=== PATIENT | female | born 1990 | race Caucasian/White ===

== ENCOUNTER 2018-05-24 01:47 | Inpatient (IN) | payer OTHER, SELFPAY ==
[2018-05-24] VITALS (14 sets, daily range): BP systolic 89–145; BP diastolic 46–86; PULSE 80–104; RESP 16–20; TEMP 36.4–37.4; O2SAT 98–100; BMI 32.5
[2018-05-24 01:45] LABS: ROM Internal Control Test YES-OK TO RESULT pt. (Internal QC)
[2018-05-24 01:46] LABS: ROM Patient Test POSITIVE (Negative)
[2018-05-24 02:27] LABS: Hemoglobin 11.5 g/dl (12.0-15.0); Mean Corp Hgb Conc 31.9 g/gl (32-36); Mean Corpuscular Hgb 28.8 pg (27.0-32.0); Mean Platelet Vol. 10.4 fl (6.2-12.0); Platelet Count 232 K/mm3 (150-450); RBC Distribution Width CV 15.4 % (11.6-14.6); RBC Distribution Width SD 49.4 fl (35.1-43.9); White Blood Count 23.8 K/mm3 (4.4-11.0)
[2018-05-24 02:30] LABS: Scan Indicated on CBC? Y/N NO
[2018-05-24] MEDS: Lactated Ringers 1,000 ML 50 ML IV ×4 (02:39→11:10)
[2018-05-24] MEDS: fentaNYL-bupivacaine (epidural) 100 ML BAG EPIDURAL ×2 (03:30→12:18)
[2018-05-24] MEDS: Ondansetron 4 MG/2 ML Vial IV (05:15)
[2018-05-24] MEDS: Mag Hydrox/Al Hydrox/Simeth 30 ML UDC PO (07:30)
--- NOTE | 2018-05-24 12:18 | HP.PCM_ITS ---
History Final JIM: 05/29/18 Gestational age: 39 Weeks and 2 Days History of this : This is a 28 year-old, G [], P [], at 39 weeks gestational age. Surgical History: Surgical History (Last Updated 05/24/18 @ 12:16 by Adonay Herman) Hx of appendectomy Z90.49 Allergies azithromycin [From Zithromax Z-Yaw] Allergy (Verified 05/24/18 01:30) Rash [place] And Derivatives Allergy (Verified 05/24/18 01:30) Anaphylaxis acetaminophen [From Vicodin] Adverse Reaction (Verified 05/24/18 01:30) Upset Stomach hydrocodone [From Vicodin] Adverse Reaction (Verified 05/24/18 01:30) Upset Stomach Home Medications: Home Medications Acyclovir [Zovirax] 400 mg PO BID PRN 05/24/18 Amoxicillin/Potassium Clav [Amox Tr-K Clv 875-125 mg Tab] 1 each PO BID 05/24/18 Pnv 11-Iron Fum-Folic Acid-Om3 [Virt-Ricardo Dha Softgel] 1 tab PO DAILY 05/24/18 Smoking Status: Current every day smoker Alcohol: None Number of Fetus(es): 1 Heart Tracin with moderate variability, accels, variables TOCO Analysis: Q3-4 minutes History Past Pregnancies: Past Pregnancies Delivery Date Name GA/Weeks Outcome Route Weight Gender Labor Length Anesthesia Delivery Location Provider FOB Labs: See [facility] H[facility]P Physical Exam General: Alert, Oriented x3 Abdomen: Soft, Gravid Estimated gestational size: Appropriate for gestational size Presentation: Cephalic Cervix Dilation (cm): 10 Station: 1 Effacement (%): 100 Assessment/Plan This is a 28 year-old female admitted with SROM Augment with pitocin Pain - epidural GBS negative EFW less than 4500g & patient with adequate pelvis Continue pushing
[2018-05-24] MEDS: Cefazolin 2 GM in 0.9% Normal Saline 100 ML IV (13:56)
[2018-05-24] MEDS: Oxytocin 30 units/NS 500 ml 30 UNITS/500 ML IV.SOLN 167 UNITS IV (14:18)
--- NOTE | 2018-05-24 15:04 | OP.PCM_ITS ---
Delivery Classification: JANAY Final JIM: 05/29/18 Gestational age: 39 Weeks and 2 Days Indications: Patient pushed for over 3 hours. station was 0 and caput was noted. Fetus was felt to be asynclitic & possibly OP. Multiple positions during pushing had been tried for rotation. R/B/A were discussed with the patient & decision was made to proceed with a section. Indications for : Failure of Descent Description of Procedure: Patient taken to OR where epidural anesthesia was dosed. She was prepped and draped in normal sterile fashion in a dorsal lithotomy position with a leftward tilt. After ensuring adequacy of anesthesia the Pfannensteil skin incision was made and carried through to the underlying fascia with a bovie. The fascia was incised in the midline and carried laterally with the Hodgson scissors. The rectus muscles were in the midline and the peritoneum was entered bluntly. The bladder flap was dissected down carefully with the Metzenbaum scissors and blunt dissection. The uterus was incised in a transverse fashion and then incision extended with cephalocaudad traction. The fetus was vertex and the head was brought to the incision in the flexed position. With good fundal pressure the head easily delivered. Gentle traction placed on head to allow delivery of anterior & posterior shoulders. No excess traction placed on head. The body delivered easily. The 3VC cord was clamped and cut after 1 minute delay and the infant handed off to the waiting RN. The placenta was delivered w/ gentle traction and fundal massage and the uterus was exteriorized and cleared of all clots and debris. The uterine incision was closed with 1 vicryl suture in a running locked fashion. A second imbricating layer of monocryl was placed. The uterus was returned to the peritoneal cavity. The pelvis was irrigated & then cleared of all clots and debris. The uterine incision was reexamined and found to be hemostatic. Some terri was placed over the uterine incision due to the denuded areas. The parietal peritoneum was reapproximated with running vicryl suture. The fascia was closed with looped PDS suture in a running standard fashion. The subcutaneous tissue was examined & any bleeding bovie cauterized. The subcutaneous tissue was reapproximated with plain gut suture. The skin was closed in a subcuticular fashion by the CUFFING MACHINE OPERATOR with me present in the labor and delivery suite. I performed the remainder of the procedure w/ assistance. Amniotic Membrane Rupture Type: Spontaneous Amniotic Fluid Description: Clear Placenta Disposition: [facility] Drain: Cshwartz to straight drain - 600ml Fluids Replaced: 1500ml Cord Entanglement: None Cord Vessel Description: 3 Vessels Esitmated Blood Loss (ml): 700ml Infant Gender: Male (1 minute): 9 (5 minute): 9 Delayed cord clamping: Yes Pre-op Antibiotic Given: Ancef 2 grams IV x1 Complications: None
[2018-05-24] MEDS: Ketorolac 30 MG/ML Syringe IV ×2 (15:10→21:56)
[2018-05-24] MEDS: HYDROmorphone 1 MG/ML Syringe IV ×3 (15:45→23:07)
[2018-05-24] MEDS: Lactated Ringers 1,000 ML 100 ML IV (16:12)
[2018-05-24] MEDS: 0.9% Saline Lock 10 ML Syringe IV ×2 (21:56→23:07)
[2018-05-25] MEDS: Lactated Ringers 1,000 ML 100 ML IV (02:25)
[2018-05-25] MEDS: HYDROmorphone 1 MG/ML Syringe IV ×3 (02:26→13:39)
[2018-05-25] MEDS: 0.9% Saline Lock 10 ML Syringe IV ×3 (02:26→05:54)
[2018-05-25 04:25] VITALS: BP 109/49; PULSE 100; RESP 18; TEMP 36.9; O2SAT 95
[2018-05-25] MEDS: Ketorolac 30 MG/ML Syringe IV ×2 (04:31→09:15)
[2018-05-25 06:18] LABS: Hematocrit 29.3 % (37-47); Hemoglobin 9.1 g/dl (12.0-15.0); Mean Corp Hgb Conc 31.1 g/gl (32-36); Mean Corpuscular Hgb 28.3 pg (27.0-32.0); Mean Corpuscular Volume 91.3 fL (81-99); Mean Platelet Vol. 10.5 fl (6.2-12.0); Platelet Count 206 K/mm3 (150-450); RBC Distribution Width CV 15.5 % (11.6-14.6); RBC Distribution Width SD 49.8 fl (35.1-43.9); Red Blood Count 3.21 M/mm3 (4.2-5.4)
[2018-05-25 06:20] LABS: Scan Indicated on CBC? Y/N NO
--- NOTE | 2018-05-25 08:08 | NURSING ---
@ 0717 Dr. Herman aware of home medication pt brought to hospital with her; Amoxicillin 875 mg tab BID PO by Dr. Adams for respiratory and sinus infection - pt states finishing medication by end of the week. Acyclovir 400mg tabp BID PO by Dr. Gaona for hx of herpes. Dr. Herman states pt does not need to continue Acyclovir medication prescribed by Dr. Gaona, and states pt may take own home medication of Amoxicillin if cleared by pharmacy. @ 1311 pharmacy called and given information of prescription , states that hospital does not carry dosage of amoxicillin and pt may take own prescribed medication if order cleared by physician. states for RN to send down prescription to be cleared by pharmacy.
--- NOTE | 2018-05-25 08:24 | PCM.PN.OB ---
Subjective: Patient laying in bed, reporting that her pain well controlled. Denies any other issues at this time. Reports baby is latching well and that she has minimal pain. Objective: Nipples without cracks, blisters, ecchymoses or erythema FF midline @ 2FB below umbilicus Incision dressing dry and intact, no blood or exudate on dressing +2/4 reflexes in LE, SCDs in place, trace pedal edema BL negative calf tenderness to palpation - Physical Exam General: Alert, Oriented x3, Cooperative HEENT: Atraumatic, Normocephalic Neck: Supple Lungs: Normal air movement Cardiovascular: Regular rate, No murmurs Abdomen: Soft, Non Tender Extremities: No edema, Capillary Refill Less than 3 Seconds Skin: No rashes, No breakdown Musculoskeletal: No Tenderness to Palpation of Joints or Extremities Neurological: Cranial nerves II-XII grossly intact Psych/Mental Status: Normal Affect, Appropriate Vital Signs Temp Pulse Resp BP Pulse Ox 98.5 F 100 18 109/49 L 95 05/25/18 04:25 05/25/18 04:25 05/25/18 04:25 05/25/18 04:25 05/25/18 04:25 Oxygen Delivery Method Room Air Weight: 214 lb 2 oz Body Mass Index (BMI) 32.5 Intake and Output for Last 24 Hours 05/23/18 05/24/18 05/25/18 23:59 23:59 23:59 Intake Total 5314 / 5314 1995 Output Total 2100 / 2100 1400 / 1400 Balance 3214 / 3214 596 / 596 Laboratory Tests Past 24 Hrs 05/25/18 06:00 WBC 19.0 H RBC 3.21 L Hgb 9.1 L Hct 29.3 L MCV 91.3 MCH 28.3 MCHC 31.1 L RDW 15.5 H RDW Differential 49.8 H Plt Count 206 MPV 10.5 Medical Necessity - Tobacco Use Smoking Status: Current every day smoker Assessment/Plan 28 y/o s/p primary LTCs for failure to descend, POD #1 P: 1) Continue PP Orders at this time 2) Continue , consultation today Sylwia Rees APRN-GAYE
[2018-05-25 09:04] VITALS: BP 115/69; PULSE 98; RESP 18; TEMP 36.9; O2SAT 97
[2018-05-25] MEDS: AMOXICILLIN 875 MG TABLET PO ×2 (10:25→21:08)
[2018-05-25 12:00] VITALS: BP 96/55; PULSE 104; RESP 18; TEMP 36.9
[2018-05-25] MEDS: Naproxen 250 MG Tablet PO (15:10)
[2018-05-25 16:00] VITALS: BP 114/68; PULSE 92; RESP 18; TEMP 36.8
[2018-05-25] MEDS: oxyCODONE 5 MG Tablet PO ×2 (16:18→21:10)
[2018-05-25 20:00] VITALS: BP 117/70; PULSE 88; RESP 16; TEMP 37.1; O2SAT 98
[2018-05-25] MEDS: Senna/Docusate Sodium 1 Tablet PO (21:11)
[2018-05-26] MEDS: Naproxen 250 MG Tablet PO (03:46)
[2018-05-26 03:48] VITALS: BP 119/80; PULSE 109; RESP 16; TEMP 36.8; O2SAT 98
[2018-05-26] MEDS: oxyCODONE 5 MG Tablet PO ×4 (06:52→19:19)
[2018-05-26 08:30] VITALS: BP 103/68; PULSE 62; RESP 16; TEMP 36.7; O2SAT 96
--- NOTE | 2018-05-26 08:38 | PCM.PN.OB ---
Subjective: Pain controlled. - Physical Exam General: Alert, Oriented x3 Abdomen: Soft, Non Tender, Non-Distended - ff mid & below umb Extremities: No Calf Tenderness Vital Signs Temp Pulse Resp BP Pulse Ox 98.3 F 109 H 16 119/80 98 05/26/18 03:48 05/26/18 03:48 05/26/18 03:48 05/26/18 03:48 05/26/18 03:48 Oxygen Delivery Method Room Air Weight: 214 lb 2 oz Body Mass Index (BMI) 32.5 Intake and Output for Last 24 Hours 05/24/18 05/25/18 05/26/18 23:59 23:59 23:59 Intake Total 5314 / 5314 3381 / 3381 Output Total 2100 / 2100 4750 / 4750 Balance 3214 / 3214 -1369 / -1369 Medical Necessity - Tobacco Use Smoking Status: Current every day smoker Assessment/Plan POD#2 Routine care Heme - cbc reviewed
[2018-05-26] MEDS: Ferrous Sulfate 325 MG Tablet PO (10:03)
[2018-05-26] MEDS: Senna/Docusate Sodium 1 Tablet PO (10:03)
[2018-05-26] MEDS: AMOXICILLIN 875 MG TABLET PO ×2 (10:04→22:24)
[2018-05-26 14:00] VITALS: BP 111/72; PULSE 85; RESP 18; TEMP 36.9; O2SAT 97
[2018-05-26 20:25] VITALS: BP 113/66; PULSE 86; RESP 18; TEMP 36.9; O2SAT 97
[2018-05-27 03:32] VITALS: BP 130/73; PULSE 78; RESP 16; TEMP 36.5; O2SAT 96
[2018-05-27] MEDS: oxyCODONE 5 MG Tablet PO ×2 (04:11→13:19)
[2018-05-27] MEDS: Ferrous Sulfate 325 MG Tablet PO (08:02)
[2018-05-27] MEDS: Senna/Docusate Sodium 1 Tablet PO (08:02)
[2018-05-27 08:19] VITALS: BP 113/80; PULSE 76; RESP 16; TEMP 36.6; O2SAT 97
--- NOTE | 2018-05-27 08:39 | PCM.PN.OB ---
Subjective: Baby was cluster feeding last night & nipples are sore. Pain controlled. - Physical Exam General: Alert, Oriented x3 Abdomen: Soft, Non Tender, Non-Distended - ff mid & below umb; inc - bandage c/d/i Extremities: No Calf Tenderness Vital Signs Temp Pulse Resp BP Pulse Ox 97.9 F 76 16 113/80 97 05/27/18 08:19 05/27/18 08:19 05/27/18 08:19 05/27/18 08:19 05/27/18 08:19 Oxygen Delivery Method Room Air Weight: 214 lb 2 oz Body Mass Index (BMI) 32.5 Intake and Output for Last 24 Hours 05/25/18 05/26/18 05/27/18 23:59 23:59 23:59 Intake Total 3381 / 3381 Output Total 4750 / 4750 Balance -1369 / -1369 Medical Necessity - Tobacco Use Smoking Status: Current every day smoker Assessment/Plan POD#3 Encouraged PLan for d/c later today or tomorrow
--- NOTE | 2018-05-27 08:40 | PCM.DC.SUM ---
Discharge Date and Diagnosis Date of Admission: 05/24/18 Date of Discharge: 05/27/18 Hospital Course and Treatment Summary of Care Provided: Patient was admitted in labor and proceed to have a section. Please see operative report. Hospital course Heme - HDS< cbc reviewed GI - tolerating reg diet - fields removed on POD#1 & no voiding issues Discharge home with medications & f/u directions - Physical Exam Vital Signs Temp Pulse Resp BP Pulse Ox 97.9 F 76 16 113/80 97 05/27/18 08:19 05/27/18 08:19 05/27/18 08:19 05/27/18 08:19 05/27/18 08:19 Oxygen Delivery Method Room Air Weight: 214 lb 2 oz Body Mass Index (BMI) 32.5 Intake and Output for Last 24 Hours 05/25/18 05/26/18 05/27/18 23:59 23:59 23:59 Intake Total 3381 / 3381 Output Total 4750 / 4750 Balance -1369 / -1369 Home Medications: Medications to take at Discharge Acyclovir [Zovirax] 400 mg PO BID PRN 05/24/18 Amoxicillin/Potassium Clav [Amox-Clav 875-125 mg Tablet] 1 each PO BID 05/24/18 Pnv 11-Iron Fum-Folic Acid-Om3 [Virt-Ricardo Dha Softgel] 1 tab PO DAILY 05/24/18 Docusate Sodium [Colace] 100 mg PO BID #60 cap 05/27/18 Ferrous Sulfate 325 mg PO DAILY@0800 #30 tab 05/27/18 Following Prescrptions Were Given to Patient: Ferrous Sulfate 325 mg PO DAILY@0800 #30 tab Docusate Sodium [Colace] 100 mg PO BID #60 cap Primary Care Physician: Audie Adams III, MD [Primary Care Provider] - Medical Necessity - Tobacco Use Smoking Status: Current every day smoker Meaningful Use Info Meaningful Use Diagnoses (Choose all that apply): None applicable
[2018-05-27] MEDS: AMOXICILLIN 875 MG TABLET PO (10:31)
[2018-05-27 14:39] VITALS: BP 120/77; PULSE 76; RESP 20; TEMP 36.8; O2SAT 97
--- NOTE | 2018-05-27 17:46 | PCM.DCCSEC ---
Discharge Diet: No Restrictions Discharge Activity: May Not Drive - for 2 weeks or while taking narcotic pain meds., May Shower, May Take a Tub Bath - in 7 days. May resume sexual activity in: 4-6 weeks Weight Bearing Status: Full weight bearing Call your doctor if your incision/area has: Continuous Slow Oozing, Sudden Increased Bleeding, Increased Pain/ Swelling, Increased Redness, Foul Smelling Discharge, Swelling at the incision site Call your doctor if you observe: Fever of 101 or Higher, Inability to urinate, Inability to have a bowel movement, Shortness of breath, Dizziness, Chest pain, Increased palpitations (irregular heartbeat), Calf discomfort, Uncontrolled pain Suture Line Care: Avoid Pulling/Pushing Cleanse incision/area with: Keep Dressing Clean & Dry - Remove in 4 days. Then may clean with soap and water Additional Instructions: If you experience any of the following, contact your healthcare provider. Bleeding that soaks a pad every hour for 2 hours Fever 100.4 or higher Unrelieved incision or abdominal pain Swelling, redness, discharge or bleeding from your incision or episiotomy site Your incision begins to separate Problems urinating (including inability to urinate or burning while urinating). Visual changes Severe headache Flu-like symptoms Pain or redness in one of both of your breasts Pain, warmth, tenderness or swelling in your legs, especially the calf area Frequent nausea and vomiting Symptoms of depression or anxiety If you experience any of the following, call 911 or go to the nearest Emergency Room. Chest pain Problems breathing Seizure activity Partial or complete paralysis of a body part, slurred speech, weakness or drooping of the face, or a sudden inability to walk or hold your balance Allergies/Adverse Reactions: Allergies azithromycin [From Zithromax Z-Yaw] Allergy (Verified 05/24/18 01:30) Rash [place] And Derivatives Allergy (Verified 05/24/18 01:30) Anaphylaxis acetaminophen [From Vicodin] Adverse Reaction (Verified 05/24/18 01:30) Upset Stomach hydrocodone [From Vicodin] Adverse Reaction (Verified 05/24/18 01:30) Upset Stomach Medications to take at Discharge Acyclovir [Zovirax] 400 mg PO BID PRN 05/24/18 Amoxicillin/Potassium Clav [Amox-Clav 875-125 mg Tablet] 1 each PO BID 05/24/18 Pnv 11-Iron Fum-Folic Acid-Om3 [Virt-Ricardo Dha Softgel] 1 tab PO DAILY 05/24/18 Docusate Sodium [Colace] 100 mg PO BID #60 cap 05/27/18 Ferrous Sulfate 325 mg PO DAILY@0800 #30 tab 05/27/18 Oxycodone HCl/Acetaminophen [Percocet 5/325] 1 - 2 tab PO Q4H PRN PRN 7 Days #20 tab 05/27/18 The following prescriptions were given: Oxycodone HCl/Acetaminophen [Percocet 5/325] 1 - 2 tab PO Q4H PRN PRN 7 Days #20 tab PRN Reason: Pain Ferrous Sulfate 325 mg PO DAILY@0800 #30 tab Docusate Sodium [Colace] 100 mg PO BID #60 cap Follow-Up: Call to make an appointment with your doctor for an incision check in 1-2 weeks. You will also need a 6 week post- follow up appointment. Test results from this visit will be discussed in further detail at your follow-up appointment, if applicable. Please Follow Up With: Adonay Herman Primary Care Physician: Audie Adams III, MD [Primary Care Provider] -
--- NOTE | 2018-05-27 17:49 | DCINST_ITS ---
Discharge Diet: No Restrictions Discharge Activity: May Not Drive - for 2 weeks or while taking narcotic pain meds., May Shower, May Take a Tub Bath - in 7 days. May resume sexual activity in: 4-6 weeks Weight Bearing Status: Full weight bearing Call your doctor if your incision/area has: Continuous Slow Oozing, Sudden Increased Bleeding, Increased Pain/ Swelling, Increased Redness, Foul Smelling Discharge, Swelling at the incision site Call your doctor if you observe: Fever of 101 or Higher, Inability to urinate, Inability to have a bowel movement, Shortness of breath, Dizziness, Chest pain, Increased palpitations (irregular heartbeat), Calf discomfort, Uncontrolled pain Suture Line Care: Avoid Pulling/Pushing Cleanse incision/area with: Keep Dressing Clean & Dry - Remove in 4 days. Then may clean with soap and water Additional Instructions: If you experience any of the following, contact your healthcare provider. * Bleeding that soaks a pad every hour for 2 hours * Fever 100.4 or higher * Unrelieved incision or abdominal pain * Swelling, redness, discharge or bleeding from your incision or episiotomy site * Your incision begins to separate * Problems urinating (including inability to urinate or burning while urinating). * Visual changes * Severe headache * Flu-like symptoms * Pain or redness in one of both of your breasts * Pain, warmth, tenderness or swelling in your legs, especially the calf area * Frequent nausea and vomiting * Symptoms of depression or anxiety If you experience any of the following, call 911 or go to the nearest Emergency Room. * Chest pain * Problems breathing * Seizure activity * Partial or complete paralysis of a body part, slurred speech, weakness or drooping of the face, or a sudden inability to walk or hold your balance Allergies/Adverse Reactions: Allergies azithromycin [From Zithromax Z-Yaw] Allergy (Verified 05/24/18 01:30) Rash [place] And Derivatives Allergy (Verified 05/24/18 01:30) Anaphylaxis acetaminophen [From Vicodin] Adverse Reaction (Verified 05/24/18 01:30) Upset Stomach hydrocodone [From Vicodin] Adverse Reaction (Verified 05/24/18 01:30) Upset Stomach Medications to take at Discharge Acyclovir [Zovirax] 400 mg PO BID PRN 05/24/18 Amoxicillin/Potassium Clav [Amox-Clav 875-125 mg Tablet] 1 each PO BID 05/24/18 Pnv 11-Iron Fum-Folic Acid-Om3 [Virt-Ricardo Dha Softgel] 1 tab PO DAILY 05/24/18 Docusate Sodium [Colace] 100 mg PO BID #60 cap 05/27/18 Ferrous Sulfate 325 mg PO DAILY@0800 #30 tab 05/27/18 Oxycodone HCl/Acetaminophen [Percocet 5/325] 1 - 2 tab PO Q4H PRN PRN 7 Days #20 tab 05/27/18 The following prescriptions were given: Oxycodone HCl/Acetaminophen [Percocet 5/325] 1 - 2 tab PO Q4H PRN PRN 7 Days #20 tab PRN Reason: Pain Ferrous Sulfate 325 mg PO DAILY@0800 #30 tab Docusate Sodium [Colace] 100 mg PO BID #60 cap Follow-Up: Call to make an appointment with your doctor for an incision check in 1-2 weeks. You will also need a 6 week post- follow up appointment. Test results from this visit will be discussed in further detail at your follow- up appointment, if applicable. Please Follow Up With: Adonay Herman Primary Care Physician: Audie Adams III, MD [Primary Care Provider] -
[2018-05-27] MEDS: Naproxen 250 MG Tablet PO (18:44)
[2018-05-27 18:45] VITALS: BP 127/79; PULSE 84; RESP 16; TEMP 36.9
== END 2018-05-27 19:20 | disposition home or self-care (01) | DRG 788 ==
LOC: WPOUT 01:47
PROVIDERS: Obstetrics & Gynecology; Admitting Provider Obstetrics & Gynecology; Family Provider Family Medicine; PCP Family Medicine; Referring Provider Obstetrics & Gynecology; Visit Provider Obstetrics & Gynecology
DX: O32.4XX0 Maternal care for high head at term, not applicable or unspecified (principal); O42.02 Full-term premature rupture of membranes, onset of labor within 24 hours of rupture; O32.2XX0 Maternal care for transverse and oblique lie, not applicable or unspecified; O99.334 Smoking (tobacco) complicating childbirth; O99.344 Other mental disorders complicating childbirth; F41.9 Anxiety disorder, unspecified; Z3A.39 39 weeks gestation of pregnancy; Z37.0 Single live birth
CPT/HCPCS: 59025; 59050; 84112; 85027; 86850; 86900; 99218; J7120; A4216; G0378; J2405

== ENCOUNTER 2021-04-03 23:33 | Emergency (ER) | payer OTHER, SELFPAY ==
[2021-04-03 23:33] VITALS: BP 154/91; PULSE 87; RESP 18; TEMP 36.7; O2SAT 96; BMI 30.1
--- NOTE | 2021-04-04 00:02 | EDS_ITS ---
HPI History of Present Illness Chief Complaint: Anxiety Informant: patient and spouse/S.O. Narrative Narrative: Patient presents with what they are concerned is may be anxiety or panic. Patient admits to being under quite a bit of stress recently. She had put their child to bed. She was laying on the ground next to them which is a common thing. She then got tingling in her fingers and toes. She felt as though her whole body would not respond to her. She was anxious. She had transient nausea but no chest pain palpitations or dyspnea. No headache. She just feels as though her whole body is heavy. She has been crying. It is getting a little bit better but nothing specifically makes it better or worse. She has a history of anxiety and has been on sertraline. Its last adjustment was a year ago. She has not missed dosages. She did have a Claritin yesterday or day before but has not had too many. She only [facility] Medical History Anxiety Genital herpes depression Home Medications sertraline 50 mg PO DAILY 04/04/21 [History Last Taken Unknown] Allergy/AdvReac Type Severity Reaction Status Date / Time azithromycin Allergy Rash Verified 05/24/18 01:30 [From Zithromax Z-Yaw] [place] And Derivatives Allergy Anaphylaxis Verified 05/24/18 01:30 acetaminophen [From Vicodin] AdvReac Upset Verified 05/24/18 01:30 Stomach hydrocodone [From Vicodin] AdvReac Upset Verified 05/24/18 01:30 Stomach Surgical History History of Hx of appendectomy [employer] teeth extracted Social History Smoking Status: Current every day smoker tobacco type: cigarettes ROS ROS ED Constitutional Constitutional ED: Denies chills or fever(s) Eyes Eyes: Denies blurry vision, change in vision or diplopia ENT ENT ED: Denies rhinorrhea Cardiovascular Cardiovascular: Denies chest pain or palpitations Respiratory/Chest Respiratory/Chest: Denies cough or dyspnea Gastrointestinal Gastrointestinal: Reports nausea; Denies abdominal pain, diarrhea or vomiting Genitourinary Genitourinary ED: Reports other Details: No incontinence. ; Denies dysuria or hematuria Musculoskeletal Musculoskeletal: Denies arthralgias or myalgias Integumentary Denies rash Neurologic Neurologic: Reports other Details: Patient has a generalized heavy feeling. She states she could not move any of her arms or legs. She has tingling in them. ; Denies headache(s) Psychiatric Psychiatric: Reports anxiety Endocrine Endocrinology: Denies polydipsia or polyuria Allergic/Immunologic Allergic/Immunologic ED: Denies urticaria EXAM Physical Exam Const Vital Signs: 04/03/21 23:33 Temperature 98.0 F Temperature Source Temporal Pulse Rate 87 Respiratory Rate 18 Blood Pressure 154/91 H Blood Pressure Mean 112 Pulse Ox 96 Oxygen Delivery Method Room Air Positive well nourished and well developed Constitutional Narrative: I walk in the room, the patient is shaking in all extremities. She is tearful and crying. She request that her gives a lot of the information initially. We are then able to trans for over and get her to start answering questions and following exam requests. General Appearance ED: well developed HEENT Reports dry mucous membranes Negative for trauma Mouth ED: Yes dry mucous membranes Mouth: dry mucous membranes Eyes PERRL and EOMs intact bilaterally Neck no lymphadenopathy and supple Chest Wall inspection of chest normal Resp normal respiratory effort and clear to auscultation bilaterally Auscultation: Negative for rales, rhonchi or wheezes Cardio regular rate, regular rhythm and no murmurs GI normal to inspection, nondistended, normoactive bowel sounds and non-tender Palpation: soft Back/Spine no CVA tenderness Extremity normal to inspection General Extremety ED: Negative for edema or tenderness General Extremity: Negative for edema Neuro oriented x3 Neuro Narrative: Patient is awake and alert. She is tapping her hands on the bed. She is able to move both extremities. She is able to sit up on her own. She is able to lay back slowly on her own. She has normal strength. She is able to lift her legs off the bed. No sign of motor or sensory change. She does tend to shake the extremities in a rhythm pattern as she does this but is able to do everything. Sensorium / Orientation: alert Psych Psych Narrative: Patient is tearful. But she is awake alert and appropriate. Mood & Affect: anxious Skin no rashes or lesions noted and no wounds MDM MDM MDM Narrative Medical decision making narrative: Patient's electrolytes show no marked abnormalities. Minimal elevation of glucose. She is much calmer. She is up walked around. I do not see any indication of neurologic deficit. I do not think this requires further work-up or CAT scan of the head. If it becomes a recurrent problem I think we need to look into other possible adjustment of medications. I think this is most likely consistent with a panic attack. is driving her home. Lab Data Attestation: I reviewed the patient's lab results. Labs: Laboratory Results - last 24 hr 04/04/21 00:10 Sodium 138 Potassium 3.8 Chloride 107 Carbon Dioxide 28.0 Anion Gap 3 L BUN 12 Creatinine 0.88 Estim Creat Clear Calc 101.09 Est GFR (MDRD) Af Amer 97 Est GFR (MDRD) Non-Af 80 BUN/Creatinine Ratio 13.6 Glucose 108 H Calcium 9.4 Discharge Plan Triage Chief Complaint: Anxiety ED Provider: Maurizio Cagle Dx/Rx/DC Orders Clinical Impression: Panic attack Instructions: ED Panic Attack Prescriptions: No Action sertraline 50 mg tablet 50 mg PO DAILY RF: 0 Primary Care Provider: Care Physician,No Primary Referrals: Concetta Youssef MD [STAFF PHYSICIAN] - 3-5 Days if not improving Care Physician,No Primary [Primary Care Provider] - Disposition Disposition: Home, Self Care
[2021-04-04] MEDS: 0.9% Normal Saline 1,000 ML 1000 ML IV (00:08)
[2021-04-04] MEDS: LORazepam 2 MG/ML Syringe 1 MG IV (00:08)
[2021-04-04 00:47] LABS: Anion Gap 3 (5-15); BUN 12 mg/dL (7-18); BUN/Creat Ratio 13.6 RATIO (10-20); Calcium,Total 9.4 mg/dL (8.5-10.1); Chloride 107 mmol/L (98-107); Creatinine, Serum 0.88 mg/dL (0.55-1.02); EST Glomerular Filtration Rate 80 mL/min (>60); Est Glom Filt Rate - Afr Amer 97 mL/min (>60); Estimated Creatinine Clearance 101.09 ml/min; Glucose 108 mg/dL (74-106); Potassium 3.8 mmol/L (3.5-5.1); Sodium Level 138 mmol/L (136-145)
[2021-04-04 02:04] VITALS: BP 128/68; PULSE 89; RESP 18
== END 2021-04-04 02:05 | disposition home or self-care (01) ==
PROVIDERS: Emergency Provider Emergency Medicine
DX: F41.0 Panic disorder [episodic paroxysmal anxiety] (principal); F17.210 Nicotine dependence, cigarettes, uncomplicated; Z79.899 Other long term (current) drug therapy
CPT/HCPCS: 80048; 96374; 99283

== ENCOUNTER 2021-08-23 15:02 | Outpatient (CLI) | payer OTHER, SELFPAY | END 2021-08-23 23:59 | disposition short-term general hospital (02) | PROVIDERS: Visit Provider Physician Assistant Medical | DX: L08.9 Local infection of the skin and subcutaneous tissue, unspecified (principal); L98.0 Pyogenic granuloma | CPT/HCPCS: 87070; 87077; 87186; 87205 ==

== ENCOUNTER 2021-12-21 16:54 | Observation (INO) | payer OTHER, SELFPAY ==
[2021-12-21] VITALS (12 sets, daily range): BP systolic 124–146; BP diastolic 75–95; PULSE 55–97; RESP 13–23; TEMP 36.6–37.2; O2SAT 98–100; BMI 30.1; BMI 29.9; BMI 31.2
--- NOTE | 2021-12-21 17:02 | CT_ITS ---
We are attempting to reach an attending provider to discuss findings. An addendum with communication details will be sent when the communication is complete. STUDY: CT BRAIN WITHOUT CONTRAST REASON FOR EXAM: Female, 31 years old. Neuro deficit, acute, stroke suspected RADIATION DOSAGE (If Supplied By Facility): CTDIvol = ( ) mGy, DLP = ( ) mGycm TECHNIQUE: Transaxial CT imaging of the brain was performed without administration of intravenous contrast material. Individualized dose optimization techniques were used for this CT. COMPARISON: No relevant priors. FINDINGS: Normal soft tissue structures. Normal calvarium. Normal size ventricles and extra-axial spaces for the patient''s age. Normal white matter tracts of the cerebral hemispheres. Normal basal ganglia and thalami. Normal brainstem. Normal cerebellum. There is no intracranial hemorrhage. There are no findings of an acute ischemic infarction. Normal visualized paranasal sinuses. CT/STROKE Brain/Head without Cont IMPRESSION: Normal unenhanced CT scan of the brain. Electronically Signed: Nicolás Sam MD at 17:41 EDT ,
--- NOTE | 2021-12-21 17:02 | EKG12_ITS ---
Test Reason : STROKE Blood Pressure : / mmHG Vent. Rate : 084 BPM Atrial Rate : 084 BPM P-R Int : 140 ms QRS Dur : 086 ms QT Int : 388 ms P-R-T Axes : 041 010 012 degrees QTc Int : 458 ms Normal sinus rhythm Normal ECG Confirmed by PATRICK VICTOR, MATY ([id number]), photograph editor MOISÉS STOLL ([id number]) on 12/23/2021 7:14:38 AM Referred By: PC Confirmed By:MTAY NGUYEN MD
--- NOTE | 2021-12-21 17:03 | CT_ITS ---
We are attempting to reach an attending provider to discuss findings. An addendum with communication details will be sent when the communication is complete. STUDY: CTA HEAD AND NECK WITH CONTRAST REASON FOR EXAM: Female, 31 years old. Neuro deficit, acute, stroke suspected RADIATION DOSAGE (If Supplied By Facility): CTDIvol = ( 18.67 ) mGy, DLP = ( 1014.8 ) mGycm TECHNIQUE: CT angiography was performed with a multi-detector CT scanner. Data acquisition was obtained from the skull base through the vertex following intravenous administration of IV 100mL Isovue-370. MIP images were reconstructed from the axial data set. Post-processing of the angiographic images was performed, with multiplanar reformation and 3D reconstruction. Individualized dose optimization techniques were used for this CT. COMPARISON: No relevant priors. FINDINGS: Normal bilateral petrous carotid arteries. Normal right cavernous carotid artery with a normal supraclinoid bifurcation. Normal left cavernous carotid artery with a normal supraclinoid bifurcation. Normal right A1 segments of the anterior cerebral artery. Normal left A1 segments of the anterior cerebral artery. Normal intact anterior communicating artery (ACOM). Normal bilateral A2 segments of the anterior cerebral arteries. Normal right M1 and M2 segments of the middle cerebral arteries, with a normal M1 bifurcation. Normal left M1 and M2 segments of the middle cerebral arteries, with a normal M1 bifurcation. Normal right posterior communicating artery (PCOM). Normal left posterior communicating artery (PCOM). Normal bilateral vertebral arteries. Normal basilar artery with a normal basilar bifurcation. The visualized bilateral superior cerebellar (SCA) arteries are normal. Bilaterally in the P1, P2 and P3 segments are normal. There is no demonstrated aneurysm of the [place] of [place]. There is no demonstrated abnormality of the visualized brain. AORTIC ARCH: Normal visualized aortic arch. Normal origins of the brachiocephalic, left common carotid, and left subclavian arteries. RIGHT CAROTID ARTERIES: Normal right common carotid artery (CCA). Normal right common carotid bulb. Normal origin of the right internal carotid (ICA) artery without a hemodynamically significant stenosis. Normal visualized cervical portion of the right internal carotid artery. Normal origin of the right external carotid artery (ECA). LEFT CAROTID ARTERIES: Normal left common carotid artery (CCA). Normal left common carotid bulb. Normal origin of the left internal carotid (ICA) artery without a hemodynamically significant stenosis. Normal visualized cervical portion of the left internal carotid artery. Normal origin of the left external carotid artery (ECA). VERTEBRAL ARTERIES: Normal bilateral vertebral arteries. There are some scattered subpathologic bilateral jugulodigastric lymph nodes and posterior triangle lymph nodes which are consistent with benign reactive lymph nodes. CT/STROKE CTA Head AND Neck W/Con IMPRESSION: Normal CTA Head and neck with contrast. Electronically Signed: Nicolás Sam MD at 17:46 EDT ,
--- NOTE | 2021-12-21 17:05 | RAD_ITS ---
STUDY: X-RAY CHEST REASON FOR EXAM: Female, 31 years old. Neuro deficit, acute, stroke suspected TECHNIQUE: Single frontal view COMPARISON: None. FINDINGS: The lungs are clear and expanded. There is no demonstrated pleural abnormality. Normal size heart. Normal mediastinum and [place]. Normal visualized pulmonary arteries. Normal visualized aortic arch and descending thoracic aorta. Normal visualized thoracic spine. Normal visualized ribs, clavicles, and shoulders. There is no demonstrated abnormality of the visualized soft tissue structures of the upper abdomen. RAD/Chest 1 View IMPRESSION: Normal x-ray examination of the chest. Electronically Signed: Nicolás Sam MD at 17:19 EDT ,
[2021-12-21 17:14] LABS: Absolute Neutrophil Count 6.8 X10^3/uL (2.0-7.7); Basophil# 0.02 X10^3/uL; Basophil% 0.2 % (0-1); Eosinophil# 0.14 X10^3/uL; Eosinophils% 1.3 % (0-5); Hematocrit 43.2 % (37-47); Hemoglobin 14.4 g/dL (12.0-15.0); Lymphocyte % 28.4 % (19-41); Mean Corp Hgb Conc 33.3 g/dL (32-36); Mean Corpuscular Hgb 30.9 pg (27.0-32.0); Mean Corpuscular Volume 92.7 fL (81-99); Monocyte# 0.87 X10^3/uL; NRBC Flagged by Analyzer 0 % (0-5); Neutrophil # 6.76 X10^3/uL (2.7-7.7); Neutrophil % 61.8 % (47-70); Platelet Count 347 K/mm3 (150-450); RBC Distribution Width CV 12.1 % (11.6-14.6); RBC Distribution Width SD 41.7 fl (35.1-43.9); Red Blood Count 4.66 M/mm3 (4.2-5.4); White Blood Count 10.9 K/mm3 (4.4-11.0)
--- NOTE | 2021-12-21 17:16 | ED.VIS.STROK ---
HPI History of Present Illness Chief Complaint: Numb/Ting Narrative Narrative: Patient presents with 2 hours of right facial droop and sensory deficit in her face. Forehead does not seem to be involved. She has no arm weakness leg weakness confusion vision changes or any voice change. She does not feel off balance. [facility], [facility], [facility] Medical History Anxiety Genital herpes depression Allergy/AdvReac Type Severity Reaction Status Date / Time azithromycin Allergy Rash Verified 12/21/21 17:13 [From Zithromax Z-Yaw] [place] And Derivatives Allergy Anaphylaxis Verified 12/21/21 17:13 acetaminophen [From Vicodin] AdvReac Upset Verified 12/21/21 17:13 Stomach hydrocodone [From Vicodin] AdvReac Upset Verified 12/21/21 17:13 Stomach Family History Other Cancer Diabetes Heart disease Hypertension Surgical History History of Hx of appendectomy [place] teeth extracted Social History Smoking Status: Never smoker ROS ROS ED ROS Narrative Past medical history: Reviewed Medications: Reviewed Social history: Noncontributory Review of systems: All systems negative except as indicated General: No fever Eyes: No visual changes ENT: No upper airway congestion, normal voice Neck: No neck pain Cardiovascular: No chest pain Respiratory: No shortness of breath or cough Gastrointestinal: No abdominal pain, nausea vomiting or diarrhea Genitourinary: No dysuria Musculoskeletal: Denies myalgias no difficulty with ambulation Skin: No rash Neurological: No memory loss, confusion or any focal weakness Psych: No recent behavioral changes Hematologic: No easy bleeding or easy bruising EXAM Physical Exam Narrative Exam Narrative: Physical exam General: Well nourished, Well developed, No Acute Distress Head: Normocephalic, Atraumatic Eyes: Conjunctiva not pale ENT: Moist mucous membranes Neck: Supple, Nontender, No lymphadenopathy Cardiovascular: Regular rate, Regular rhythm Respiratory: No distress, CTA bilaterally Abdomen: Soft, Nontender, Nondistended Back: Nontender, Normal Inspection. Negative for: CVA tenderness Extremities: Nontender, No edema Skin: Normal color, No rash Neurological: See NIH stroke scale Psychological: Normal affect Const Vital Signs: 12/21/21 16:58 12/21/21 17:03 12/21/21 17:25 Temperature 98.9 F Temperature Source Temporal Pulse Rate 83 83 97 Respiratory Rate 14 13 Blood Pressure 134/87 H 134/87 H 146/95 H Blood Pressure Mean 102 102 112 Pulse Ox 99 99 100 Oxygen Delivery Method Room Air Room Air Room Air 12/21/21 17:26 12/21/21 17:32 Temperature Temperature Source Pulse Rate 90 Respiratory Rate 23 H Blood Pressure 136/86 H Blood Pressure Mean 102 Pulse Ox 100 Oxygen Delivery Method Room Air Room Air STROKE Vital Signs/Narrative: Vital Signs Temp Pulse Resp BP Pulse Ox 12/21/21 17:32 90 23 H 136/86 H 100 12/21/21 17:25 97 13 146/95 H 100 12/21/21 17:03 83 134/87 H 99 12/21/21 16:58 98.9 F 83 14 134/87 H 99 NIHSS Initial: 1a Level of Consciousness: 0 1b LOC Questions (Score 2 if aphasic/stupor): 0 1c LOC Commands (Only score 1st attempt): 0 2 Best Gaze (If aphasic, use reflexive mvmts.): 0 3 Visual: 0 4 Facial Palsy: 1 5 Motor Arm Right (UN = amputation/fusion): 0 5 Motor Arm Left: 0 6 Motor Leg Right: 0 6 Motor Leg Left: 0 7 Limb ataxia (Only + if out of proportion): 0 8 Sensory (Aphasia/stupor=0 or 1, coma=2): 1 9 Best Language: 0 10 Dysarthria (mute, coma=2, intubated=UN): 0 11 Extinction and Inattention (only scored if +): 0 Total Score: 2 MDM MDM MDM Narrative Medical decision making narrative: Patient's work-up is unremarkable but she still has neurological symptoms, there are in V1 and V2 distribution, these may be central or they could be peripheral regardless after discussing with neurology they recommended inpatient MRI. I will admit. Lab Data Labs: Laboratory Results - last 24 hr 12/21/21 12/21/21 12/21/21 17:04 17:04 17:04 WBC 10.9 RBC 4.66 Hgb 14.4 Hct 43.2 MCV 92.7 MCH 30.9 MCHC 33.3 RDW Std Deviation 41.7 RDW Coeff of Margie 12.1 Plt Count 347 MPV 10.0 Immature Gran % (Auto) 0.300 Neut % (Auto) 61.8 Lymph % (Auto) 28.4 [place] % (Auto) 8.0 Eos % (Auto) 1.3 Baso % (Auto) 0.2 Absolute Neuts (auto) 6.8 Absolute Lymphs (auto) 3.10 Nucleated RBC % 0 PT Cancelled INR Cancelled APTT Cancelled Sodium 140 Potassium 3.9 Chloride 109 H Carbon Dioxide 26.0 Anion Gap 5 BUN 10 Creatinine 1.00 Estim Creat Clear Calc 88.95 Est GFR (MDRD) Af Amer 83 Est GFR (MDRD) Non-Af 69 BUN/Creatinine Ratio 10.0 Glucose 96 Calcium 9.2 Troponin I High Sens < 3 L POC Glucose 12/21/21 17:26 WBC RBC Hgb Hct MCV MCH MCHC RDW Std Deviation RDW Coeff of Margie Plt Count MPV Immature Gran % (Auto) Neut % (Auto) Lymph % (Auto) [place] % (Auto) Eos % (Auto) Baso % (Auto) Absolute Neuts (auto) Absolute Lymphs (auto) Nucleated RBC % PT INR APTT Sodium Potassium Chloride Carbon Dioxide Anion Gap BUN Creatinine Estim Creat Clear Calc Est GFR (MDRD) Af Amer Est GFR (MDRD) Non-Af BUN/Creatinine Ratio Glucose Calcium Troponin I High Sens POC Glucose 84 Radiography Diagnostic Testing: Clinical Impression(s) from Imaging Studies Brain CT 12/21/21 17:02 IMPRESSION: Normal unenhanced CT scan of the brain. Electronically Signed: Nicolás Sam MD at 17:41 EDT , Head/Neck CTA 12/21/21 17:03 IMPRESSION: Normal CTA Head and neck with contrast. Electronically Signed: Nicolás Sam MD at 17:46 EDT , Chest X-Ray 12/21/21 17:05 IMPRESSION: Normal x-ray examination of the chest. Electronically Signed: Nicolás Sam MD at 17:19 EDT , Critical Care Time Critical Care Time: Yes Critical care time (excluding procedures): 30-74 minutes and - (I attest that I spent 35 minutes of critical care time with this patient this includes time at the bedside, time discussing with consultants including neurology and medicine, time documenting and time making decisions about tPA.) Discharge Plan Triage Chief Complaint: Numb/Ting ED Provider: Matt Dai Dx/Rx/DC Orders Clinical Impression: Facial droop, Neurological symptoms Primary Care Provider: Care Physician,No Primary Referrals: Care Physician,No Primary [Primary Care Provider] - Disposition Disposition: Acute Care Hospital [facility]
[2021-12-21 17:30] LABS: Bedside Glucose 84 mg/dL (74-106)
[2021-12-21 17:34] LABS: Anion Gap 5 (5-15); BUN 10 mg/dL (7-18); Calcium,Total 9.2 mg/dL (8.5-10.1); Chloride 109 mmol/L (98-107); EST Glomerular Filtration Rate 69 mL/min (>60); Est Glom Filt Rate - Afr Amer 83 mL/min (>60); Estimated Creatinine Clearance 88.95 ml/min; Glucose 96 mg/dL (74-106); Potassium 3.9 mmol/L (3.5-5.1); Sodium Level 140 mmol/L (136-145); Troponin-I HS < 3 pg/mL (3.0-54.0)
--- NOTE | 2021-12-21 17:44 | ED.RN ---
Per Dr. Dai, NIH assessments cancelled unless patient has changes in symptoms
[2021-12-21 17:50] LABS: Prothrombin Time (Protime)PT. 13.1 SECONDS (11.7-14.9)
[2021-12-21 17:51] LABS: Partial Thromboplast Time 27.9 Seconds (24.1-36.2)
--- NOTE | 2021-12-21 18:14 | HP.PCM.HOS_ITS ---
HPI - General General Date of Admission: 12/21/21 HPI Narrative GERARDO BROOKS, is a 31 F with a PMh as outlined who presents via the ED with a complaint of right sided facial and oral numbness and tingling as well as right facial droop. Last known well was ~ 3pm on day of presentation. She said she noted that the right side of her mouth felt numb, as well as the right side of her face. Her subsequently noted that she had a right facial droop. She denied any slurring of her speech, and focal weakness or any difficulty speaking. She had never had such symptoms before. She called the EMS and she was brought to the ED, where a stroke alert was called. She had CT of the brain which showed no evidence of stroke. [facility] telestroke was consulted and reviewed patient and recommended admission for MRI to rule out a stroke. She is being admitted to rule out a stroke. [facility] Medical History Anxiety Genital herpes depression Allergy/AdvReac Type Severity Reaction Status Date / Time azithromycin Allergy Rash Verified 12/21/21 17:13 [From Zithromax Z-Yaw] [place] And Derivatives Allergy Anaphylaxis Verified 12/21/21 17:13 acetaminophen [From Vicodin] AdvReac Upset Verified 12/21/21 17:13 Stomach hydrocodone [From Vicodin] AdvReac Upset Verified 12/21/21 17:13 Stomach Family History Other Cancer Diabetes Heart disease Hypertension Surgical History History of Hx of appendectomy [place] teeth extracted Social History Smoking Status: Never smoker ROS Constitutional Constitutional: Denies anorexia, chills, fatigue, fever(s), malaise or weakness Eyes Eyes: Denies blurry vision or change in vision ENT HEENT: Denies abnormal hearing, dysphagia, headache(s), hearing loss or nasal congestion Cardiovascular Cardiovascular: Denies syncope Respiratory/Chest Respiratory/Chest: Denies cough, dyspnea, productive cough, shortness of breath at rest or shortness of breath with exertion Gastrointestinal Gastrointestinal: Denies abdominal pain, constipation, nausea or vomiting Genitourinary Genitourinary: Denies burning urination, dysuria or urinary frequency Musculoskeletal Musculoskeletal: Denies arthralgias, joint stiffness or joint swelling Neurologic Neurologic: Reports numbness, paresthesias and tingling; Denies confusion, dizziness, focal weakness, headache(s), seizure-like activity, seizures, syncope or tremor(s) Psychiatric Psychiatric: Denies anxiety or depression Endocrine Endocrinology: Denies change in body appearance Hematologic/Lymphatic Hematologic/Lymphatic: Denies anemia Vital Signs Vital Signs Vital Signs: 12/21/21 16:58 12/21/21 17:03 12/21/21 17:25 Temperature 98.9 F Temperature Source Temporal Pulse Rate 83 83 97 Respiratory Rate 14 13 Blood Pressure 134/87 H 134/87 H 146/95 H Blood Pressure Mean 102 102 112 Pulse Ox 99 99 100 Oxygen Delivery Method Room Air Room Air Room Air 12/21/21 17:26 12/21/21 17:32 Temperature Temperature Source Pulse Rate 90 Respiratory Rate 23 H Blood Pressure 136/86 H Blood Pressure Mean 102 Pulse Ox 100 Oxygen Delivery Method Room Air Room Air Weight Weight: 208 lb 12.444 oz Body Mass Index (BMI) 29.9 Physical Exam Const alert, oriented x3 and no apparent distress General Appearance: cooperative HEENT normocephalic, head/scalp atraumatic, hearing grossly normal bilaterally and moist oral mucous membranes Eyes PERRL, EOMs intact bilaterally and conjunctivae normal Neck no lymphadenopathy and supple Resp normal respiratory effort, no retractions, no use of accessory muscles and clear to auscultation bilaterally Cardio regular rate, regular rhythm, S1 normal heart sound, S2 normal heart sound and no murmurs GI normal to inspection, nondistended, normoactive bowel sounds, soft to palpation and non-tender Extremity normal to inspection, full ROM and no clubbing, cyanosis or edema Peripheral Pulses: Yes pulses 2+ throughout Skin no rashes or lesions noted Neuro oriented x3, CN's II-XII intact bilaterally and moves all extremities Neuro Narrative: complains of mild right sided perioral numbness and tingling still Sensorium / Orientation: awake and alert Motor Exam: strength 5/5 throughout Psych Mood & Affect: anxious Results Lab / Micro Data Result Diagrams: 12/21/21 17:04 12/21/21 17:04 Labs: Laboratory Results - last 24 hr 12/21/21 17:04: WBC 10.9, RBC 4.66, Hgb 14.4, Hct 43.2, MCV 92.7, MCH 30.9, MCHC 33.3, RDW Std Deviation 41.7, RDW Coeff of Margie 12.1, Plt Count 347, MPV 10.0, Immature Gran % (Auto) 0.300, Neut % (Auto) 61.8, Lymph % (Auto) 28.4, [place] % (Auto) 8.0, Eos % (Auto) 1.3, Baso % (Auto) 0.2, Absolute Neuts (auto) 6.8, Absolute Lymphs (auto) 3.10, Nucleated RBC % 0 12/21/21 17:04: PT Cancelled, INR Cancelled, APTT Cancelled 12/21/21 17:04: Sodium 140, Potassium 3.9, Chloride 109 H, Carbon Dioxide 26.0, Anion Gap 5, BUN 10, Creatinine 1.00, Estim Creat Clear Calc 88.95, Est GFR (MDRD) Af Amer 83, Est GFR (MDRD) Non-Af 69, BUN/Creatinine Ratio 10.0, Glucose 96, Calcium 9.2, Troponin I High Sens < 3 L 12/21/21 17:26: POC Glucose 84 12/21/21 17:31: PT 13.1, INR 1.0, APTT 27.[address] 12/21/21 17:02 IMPRESSION: Normal unenhanced CT scan of the brain. Electronically Signed: Nicolás Sam MD at 17:41 EDT , Head/Neck CTA 12/21/21 17:03 IMPRESSION: Normal CTA Head and neck with contrast. Electronically Signed: Nicolás Sam MD at 17:46 EDT , ADDENDUM: 12/21/21 3915 IMPRESSION: undefined Chest X-Ray 12/21/21 17:05 IMPRESSION: Normal x-ray examination of the chest. Electronically Signed: Nicolás aSm MD at 17:19 EDT , Assessment & Plan Assessment/Plan (1) Facial droop: (2) Neurological symptoms: PLAN: #RIght facial droop and mouth tingling * symptoms have largely resolved. Likely due to a TIA * admit to PCU * NIHSS was 2 on admission * CT [facility] brain showed no acute pathology * will get MRI of the brain and 2D echo tomorrow * PO aspirin 81mg daily * high intensity statin * monitor NIHSS * PT/OT consult * fall precautions * bedside swallow evaluation * check ESR and CRP in light of her young age and presenting with stroke like symptoms * DVT prophylaxis: SCDs Charges/Coding Visit Charges OBSV E&M: 86631 Initial observation care L2
[2021-12-21 20:59] LABS: Hemoglobin A1c 5.1 % (3.8-5.6)
[2021-12-21 21:23] LABS: Erythrocyte Sedimentation Rate 23 mm/hr (0-30)
[2021-12-21] MEDS: Atorvastatin Calcium 80 MG Tablet PO (21:23)
[2021-12-21] MEDS: 0.9% Saline Lock 10 ML Syringe IV (22:08)
[2021-12-22] VITALS (10 sets, daily range): BP systolic 109–129; BP diastolic 72–82; PULSE 53–85; RESP 12–16; TEMP 36.4–37; O2SAT 95–100; BMI 31.2
--- NOTE | 2021-12-22 05:55 | MRI_ITS ---
STUDY: MRI BRAIN WITHOUT CONTRAST REASON FOR EXAM: Female, 31 years old. right facial droop/ numbness TECHNIQUE: Standardized multiplanar fat and water weighted pulse sequences were obtained. COMPARISON: Head CT dated DECEMBER 21, 2021 FINDINGS: Normal size of the ventricles and extra-axial spaces for the patient''s age. Normal white matter tracts of the supratentorial brain. There is no evidence for recent intracranial ischemia or other cause of cytotoxic edema on diffusion weighted imaging (DWI). Normal T2* images of the brain without demonstrated susceptibility artifact. There is no demonstrated hemosiderin stain. Normal bilateral basal ganglia. Normal thalami. There is no extra-axial fluid accumulation. Normal flow voids within the major intracranial circulation suggesting patency by spin echo criteria. Normal sella turcica, pituitary gland, infundibular stalk, optic chiasm and hypothalamus. Normal tectal plate and pineal gland. Normal midbrain, simone and medulla. Normal cerebellum. Normal basal cisterns. Normal bilateral temporal bones. Normal bilateral internal auditory canals. No demonstrated orbital abnormality, within the constraints of a routine brain study. Normal visualized paranasal sinuses. Normal calvarium and skull base. Normal visualized soft tissue structures. Normal visualized upper cervical spine. MRI/Brain without Contrast IMPRESSION: Normal unenhanced MRI of the brain. Electronically Signed: Eduin Caputo MD at 10:58 EDT ,
[2021-12-22 05:58] LABS: Cholesterol 155 mg/dL (200); High Density Lipoprotein 34 mg/dL; Triglycerides 105 mg/dL; Very Low Density Lipoprotein 21 mg/dL (5-40)
--- NOTE | 2021-12-22 06:22 | NURSING ---
NIH completed late due to emergency situation on the floor
--- NOTE | 2021-12-22 07:00 | ECHOD_ITS ---
Reason For Study: TIA/CVA Procedure This was a 2D Doppler, Color Flow transthoracic echocardiogram. Exam performed in department. Left Ventricle Normal LV size. Left ventricular systolic function is normal. The estimated ejection fraction is 55 %. No regional wall motion abnormalities noted. Right Ventricle Normal RV size. Normal systolic function. Atria Normal left atrium. Normal right atrium. Bubble contrast study negative for right to left interatrial shunt. Mitral Valve Normal mitral valve. Tricuspid Valve Normal tricuspid valve. Mild tricuspid valve insufficiency. Pulmonary artery systolic pressure is 28 mmHg. Aortic Valve Normal aortic valve. Trisinus/trileaflet aortic valve. Pulmonic Valve Normal pulmonic valve. Great Vessels Normal aortic root. The pulmonary artery is normal size. Normal inferior vena cava. Pericardium/Pleural No pericardial effusion. Medication Performed a rapid injection of agitated mix of 9 cc saline and 1cc air to assess for atrial septal defect. MMode/2D Measurements & Calculations LVIDd: 4.8 cm IVSd: 1.1 cm Ao root diam: 2.7 cm LVIDs: 2.6 cm LVPWd: 0.84 cm RVDd: 4.2 cm FS: 46.1 % LAV(MOD-bp): 32.7 ml LVAd ap4: 25.4 cm2 SV(MOD-sp4): 37.3 ml LAV(MOD-bp) Indexed: 15.8 ml/m2 LVLd ap4: 7.6 cm LAV(MOD-sp2): 28.7 ml EDV(MOD-sp4): 70.4 ml LAV(MOD-sp4): 29.6 ml EDV(sp4-el): 71.8 ml LVAs ap4: 14.9 cm2 LVLs ap4: 5.8 cm ESV(MOD-sp4): 33.0 ml ESV(sp4-el): 33.0 ml EF(MOD-sp4): 53.0 % EF(sp4-el): 54.1 % SV(sp4-el): 38.8 ml LA A4 area: 13.6 cm2 LA dimension(2D): 3.7 cm RA A4 area: 18.0 cm2 Doppler Measurements & Calculations MV E max ruddy: 73.9 cm/sec Lat Peak E' Ruddy: 12.6 cm/sec Med Peak E' Ruddy: 9.9 cm/sec MV A max ruddy: 65.8 cm/sec E/E' lat: 5.9 E/E' med: 7.5 MV E/A: 1.1 Ao V2 max: 139.6 cm/sec LV V1 max: 107.9 cm/sec PA V2 max: 107.1 cm/sec Ao max P.8 mmHg LV V1 max P.7 mmHg TR max ruddy: 245.0 cm/sec TR max P.0 mmHg ECHO/Echo Complete Interpretation Summary Normal LV size. Left ventricular systolic function is normal. The estimated ejection fraction is 55 %. Mild tricuspid valve insufficiency. Pulmonary artery systolic pressure is 28 mmHg. Bubble contrast study negative for right to left interatrial shunt. Ordering Physician: Toña Duvall Referring Physician: LYNNETTE PCP Performed By: Meli Mercado RCS
--- NOTE | 2021-12-22 07:44 | TELEMED_ITS ---
[facility] has confirmed receipt of a request for visit. This document confirms receipt of the order initiating the consult. To find the results of the consultation, please view the patient's reports for the scanned Telemed Consult.
[2021-12-22] MEDS: Aspirin 81 MG TAB.CHEW PO (07:56)
--- NOTE | 2021-12-22 14:59 | MRI_ITS ---
[employer] Unformatted Report Gender: Female Age: 31 years Exam: MR Spine Cervical WO/W Contrast Comparison: History: facial droop rt, oral numbness Contrast: IV 18ml dotarem Straightening of the usual lordotic curvature. No significant spinal stenosis. Normal cord signal intensity and size. No epidural enhancement or fluid collection. No neural foraminal stenosis. Normal disc height and signal intensity. MRI/Spine Cervical W/WO Contrast IMPRESSION: No suspicious findings. Straightening of the usual lordotic curvature, likely positional. Electronically Signed: Blanca Meirda MD at 6:02 EDT ,
--- NOTE | 2021-12-22 17:06 | PN.HOSP_ITS ---
Subjective Subjective Patient states she is overall better however she feels that she still has a little bit of facial droop and some tingling in the second and third branches of the trigeminal nerve. No other issues noted overnight. No headache. Objective Data Objective Data Vital Signs: Vital Signs Temp Pulse Resp BP Pulse Ox 98.6 F 78 12 112/80 95 12/22/21 14:08 12/22/21 14:08 12/22/21 14:08 12/22/21 14:08 12/22/21 14:08 Oxygen Delivery Method Room Air Weight: 93.2 kg Body Mass Index (BMI) 31.2 Intake & Output: Intake and Output for Last 24 Hours 12/20/21 12/21/21 12/22/21 23:59 23:59 23:59 Intake Total 520 / 520 Balance 520 / 520 Lab / Micro Data Result Diagrams: 12/21/21 17:04 12/21/21 17:04 Labs: Laboratory Results - last 24 hr 12/21/21 17:04: WBC 10.9, RBC 4.66, Hgb 14.4, Hct 43.2, MCV 92.7, MCH 30.9, MCHC 33.3, RDW Std Deviation 41.7, RDW Coeff of Margie 12.1, Plt Count 347, MPV 10.0, Immature Gran % (Auto) 0.300, Neut % (Auto) 61.8, Lymph % (Auto) 28.4, [place] % (Auto) 8.0, Eos % (Auto) 1.3, Baso % (Auto) 0.2, Absolute Neuts (auto) 6.8, Absolute Lymphs (auto) 3.10, Nucleated RBC % 0 12/21/21 17:04: PT Cancelled, INR Cancelled, APTT Cancelled 12/21/21 17:04: Sodium 140, Potassium 3.9, Chloride 109 H, Carbon Dioxide 26.0, Anion Gap 5, BUN 10, Creatinine 1.00, Estim Creat Clear Calc 88.95, Est GFR (MDRD) Af Amer 83, Est GFR (MDRD) Non-Af 69, BUN/Creatinine Ratio 10.0, Glucose 96, Calcium 9.2, Troponin I High Sens < 3 L 12/21/21 17:04: Hemoglobin A1c 5.1 12/21/21 17:04: ESR 23 12/21/21 17:04: C-React Prot Ext Range 3.20 H 12/21/21 17:26: POC Glucose 84 12/21/21 17:31: PT 13.1, INR 1.0, APTT 27.9 12/22/21 04:11: Triglycerides 105, Cholesterol 155, LDL Cholesterol 100, VLDL Cholesterol 21, HDL Cholesterol 34 L Radiography Diagnostic Testing: Radiology Impression Brain CT 12/21/21 17:02 IMPRESSION: Normal unenhanced CT scan of the brain. Electronically Signed: Nicolás Sam MD at 17:41 EDT , ADDENDUM: 12/21/21 1817 IMPRESSION: Normal unenhanced CT scan of the brain. N.B. : The above Results were Read Back by Nicolás Sam MD to Matt Dai MD, and understanding confirmed on 12/21/2021 18:11:03 (ET). Electronically Signed: Nicolás Sam MD at 17:41 EDT , Head/Neck CTA 12/21/21 17:03 IMPRESSION: Normal CTA Head and neck with contrast. Electronically Signed: Nicolás Sam MD at 17:46 EDT , ADDENDUM: 12/21/21 1755 IMPRESSION: undefined ADDENDUM: 12/21/21 1820 IMPRESSION: undefined Chest X-Ray 12/21/21 17:05 IMPRESSION: Normal x-ray examination of the chest. Electronically Signed: Nicolás Sam MD at 17:19 EDT , Brain MRI 12/22/21 05:55 IMPRESSION: Normal unenhanced MRI of the brain. Electronically Signed: Eduin Caputo MD at 10:58 EDT , Echocardiogram 12/22/21 07:00 Interpretation Summary Normal LV size. Left ventricular systolic function is normal. The estimated ejection fraction is 55 %. Mild tricuspid valve insufficiency. Pulmonary artery systolic pressure is 28 mmHg. Bubble contrast study negative for right to left interatrial shunt. Ordering Physician: Toña Duvall Referring Physician: LYNNETTE PCP Performed By: Meli Mercado RCS Physical Exam Const alert, oriented x3, no apparent distress, healthy appearing and well nourished Constitutional Narrative: Obese young white female sitting up in bed, appears comfortable nontoxic Exam Limitations: no limitations Nutritional Appearance: overweight HEENT head/scalp atraumatic and moist oral mucous membranes Head and Scalp: normocephalic Eyes PERRL, EOMs intact bilaterally and conjunctivae normal Eyes Narrative: No scleral icterus Neck no lymphadenopathy and supple Resp normal respiratory effort, no retractions, no use of accessory muscles and clear to auscultation bilaterally Auscultation: Negative for crackles, rales, rhonchi or wheezes Cardio regular rate, regular rhythm, S1 normal heart sound, S2 normal heart sound, no murmurs, no rub, no gallops, no clicks and no JVD GI normal to inspection, nondistended, normoactive bowel sounds, soft to palpation, non-tender and non-distended; Negative for hepatosplenomegaly Extremity no clubbing, cyanosis or edema Peripheral Pulses: Yes pulses 2+ throughout Neuro oriented x3, moves all extremities and no focal motor deficits Neuro Narrative: Very slight right-sided facial droop that improved by the afternoon, mild sensory deficits in the second and third branches of the trigeminal nerve with all other cranial nerves being normal, 3+ reflexes upper and lower extremities, no pronator drift, no weakness in the lower extremities on exam Sensorium / Orientation: awake and alert Speech: speech normal Psych Psych Narrative: Mildly anxious, affect seems normal and eye contact is good Assessment & Plan Assessment/Plan (1) Facial droop: (2) Neurological symptoms: (3) Elevated C-reactive protein (CRP): PLAN: Mild right-sided facial droop and paresthesias in the second and third branch of the trigeminal nerve -Echo is normal -MRI is normal -CTA of the head and neck are normal -SARINA is pending with reflex antibodies as well -Cervical spine MRI with and without contrast recommended by neurology to rule out any involvement of the fifth cranial nerve by vasculature -If MRI of the cervical spine is positive for any lesions a patient will need an LP -If work-up is negative we will plan on discharging patient tomorrow with recommended outpatient neurology follow-up -No need for aspirin or statin -Lipids are overall unremarkable -No need to continue aspirin or high intensity statin -Continue neurochecks CRP elevation -ESR was normal -CRP was mildly elevated -Could be physiologic and that she is young female however SARINA is pending -Is overall nonspecific DVT prophylaxis -Continue current CODE STATUS Full code Charges/Coding Visit Charges Inpatient E&M: 32471 Subs Hosp L2
[2021-12-22] MEDS: Atorvastatin Calcium 80 MG Tablet PO (21:11)
[2021-12-23] VITALS: PULSE 55
[2021-12-23 03:00] VITALS: BP 110/71; PULSE 84; RESP 16; TEMP 36.5; O2SAT 99
[2021-12-23 03:53] VITALS: PULSE 84
[2021-12-23 07:00] VITALS: PULSE 58
--- NOTE | 2021-12-23 07:28 | PCM.DC.SUM ---
Providers Date of Admission: 12/21/21 Date of Discharge: 12/23/21 Primary Care Physician: Miya Primary Care Phys Reason For Visit: TIA Diagnosis Discharge Diagnosis (1) Facial droop: Status: Acute Code(s): R29.810 - Facial weakness (2) Neurological symptoms: Status: Acute Code(s): R29.90 - Unspecified symptoms and signs involving the nervous system (3) Elevated C-reactive protein (CRP): Status: Acute Code(s): R79.82 - Elevated C-reactive protein (CRP) Hospital Course Operations None Procedures 2-D Echocardiogram, EKG and - (CT of head/CTA of head neck/MRI of brain/MRI of cervical spine) Summary of Care Provided Minutes Spent on Discharge: 38 Hospital Course: Mrs. Salvador is a 31-year-old white female who presented to the emergency department at [facility] on 12/21/2021 with a chief complaint of right-sided facial and oral numbness as well as tingling and a right-sided facial droop. The patient was last known well at 3 PM on the day of presentation. She reported that she noted the right side of her mouth felt full and numb as well as the right side of her face and her cheek and chin area. Her subsequently noted that she had some right facial droop but she denied any slurring of her speech. She had no other focal weakness or any difficulty speaking. She never had any previous symptoms and has no family history of neurological disorders. They called EMS and she was brought to the emergency department where a stroke alert was called. She had a CT of the brain which was negative for any acute findings. [facility] stroke telemetry consult was performed and recommended admission for an MRI to rule out a stroke. Patient was admitted to the PCU and stroke order set was initiated. She had an echocardiogram which was negative for any acute findings. She had an MRI of the brain which was negative for any acute findings. She had a CTA of her head neck which was negative for any vascular abnormalities. Her lipids were within normal range. An ESR was obtained and was normal however she had a mildly elevated CRP at 3.20 which was just above the upper limits of normal for the baseline range. Given her mildly elevated CRP and SARINA with reflex autoimmune panel was ordered and pending upon discharge. SOC consultation was placed and she was evaluated by the telemetry neurologist. There was some concern for the trigeminal nerve impingement secondary to her facial numbness versus allergic reaction however no clear exposures were implied. The MR I of the brain was reviewed by the teleneurologist and she felt a T2 weighted image showed slight right vertebral artery tortuosity that may be impinging on the trigeminal nerve with no indentation or compression upon the brainstem observed. Given the patient's age they recommended a cervical spine MRI to be performed with and without contrast to rule out a lesion in the nucleus of the 5th cranial nerve or demyelination process in the cervical spine. An MRI of the cervical spine was ordered based on recommendation and again was negative for any acute findings. Given the negative findings on her work-up neurology felt that she could be discharged home with outpatient follow-up neurology. The patient symptoms seem to wax and wane in her physical exam seem to be somewhat inconsistent. She was able to be discharged home in stable condition with recommended follow-up with neurology. Referral was made and the neurologist number was given for her to call make an appointment within the next month if possible. The patient does not regularly follow-up with a primary care physician however, we did strongly encourage her to find a new primary care physician as she stated she was in the process of switching primary care physicians. Follow-up with the PCP was recommended for the next 1 to 2 weeks. Discharge diagnoses: Intermittent right facial droop-resolved Right-sided facial numbness-intermittent CRP elevation Physical Exam Narrative Patient reports that her symptoms all resolved but she had a return of a full feeling in the right side of her face this morning. Const alert, oriented x3, no apparent distress, healthy appearing and well nourished Constitutional Narrative: Obese young white female sitting up in bed, appears comfortable nontoxic General Appearance: cooperative, comfortable, well kempt and well developed Exam Limitations: no limitations Nutritional Appearance: overweight HEENT normocephalic, head/scalp atraumatic, hearing grossly normal bilaterally and moist oral mucous membranes Eyes PERRL, EOMs intact bilaterally and conjunctivae normal Eyes Narrative: No scleral icterus Neck no lymphadenopathy, supple and no JVD Neck Narrative: Trachea midline, no thyroid enlargement Resp normal respiratory effort, no retractions, no use of accessory muscles and clear to auscultation bilaterally Auscultation: Negative for crackles, rales, rhonchi or wheezes Cardio regular rate, regular rhythm, S1 normal heart sound, S2 normal heart sound, no murmurs, no rub, no gallops, no clicks and no JVD GI normal to inspection, nondistended, normoactive bowel sounds, soft to palpation, non-tender and non-distended; Negative for hepatosplenomegaly Extremity normal to inspection, full ROM and no clubbing, cyanosis or edema Skin no rashes or lesions noted Neuro oriented x3, CN's II-XII intact bilaterally, moves all extremities and no focal motor deficits Neuro Narrative: Patient exhibits some very mild right facial droop during my initial examination however later during our conversation patient smiled and had no facial droop, patient reported mild facial sensory deficits that return predominantly in the V3 region of the trigeminal nerve Sensorium / Orientation: awake and alert Speech: speech normal Motor Exam: strength 5/5 throughout Psych Psych Narrative: Affect is slightly flattened patient appears mildly anxious Mood & Affect: anxious Weight / BMI Weight Weight: 93.2 kg Body Mass Index (BMI) 31.2 ABG / Lab / Microbiology Data Result Diagrams: 12/21/21 17:04 12/21/21 17:04 Radiography Diagnostic Testing: Radiology Impression Brain MRI 12/22/21 05:55 IMPRESSION: Normal unenhanced MRI of the brain. Electronically Signed: Eduin Caputo MD at 10:58 EDT , Echocardiogram 12/22/21 07:00 Interpretation Summary Normal LV size. Left ventricular systolic function is normal. The estimated ejection fraction is 55 %. Mild tricuspid valve insufficiency. Pulmonary artery systolic pressure is 28 mmHg. Bubble contrast study negative for right to left interatrial shunt. Ordering Physician: Toña Duvall Referring Physician: NO PCP Performed By: Meli Mercado RCS Cervical Spine MRI 12/22/21 14:59 IMPRESSION: No suspicious findings. Straightening of the usual lordotic curvature, likely positional. Electronically Signed: Blanca Merida MD at 6:02 EDT Reading Location ID and State: [facility] / [place] Tel , Service support , D/C Instructions Discharge Diet: No restrictions Discharge Activity: Return to Normal Activity Return to work on: 12/24/21 Meaningful Use Info Meaningful Use Diagnoses (Choose all that apply): None applicable Discharge Plan Admission Admit Date/Time: 12/21/21 18:22 Primary Reason for Your Visit: R Facial Droop and Numbness Attending Provider: Alison Hong Primary Care Provider: Care Physician,No Primary Consulting Providers: Toña Duvall Discharge Orders/Prescriptions Referrals / Follow Up: Santana Bauman MD [NON-STAFF] - Within 1 Month (R facial numbness and droop) Care Physician,No Primary [Primary Care Provider] - Disposition Disposition (needs filled in before D/C Order can be placed): Home, Self Care Charges/Coding Visit Charges Inpatient E&M: 59636 Subs Hosp L2
[2021-12-23 09:03] VITALS: O2SAT 97
--- NOTE | 2021-12-23 09:23 | CASEMGMT ---
SW did not complete a PHQ 9 with patient as per SOC documentation patient did not have a TIA or Stroke. Laura Pedraza VISUAL EDUCATION DIRECTOR CLINICAL SPECIALIST
[2021-12-23 09:36] VITALS: BP 110/71; PULSE 84; RESP 16; TEMP 36.5; O2SAT 99
[2021-12-24 16:00] LABS: ANTINUCLEAR ANTIBODIES DIRECT Negative (Negative)
== END 2021-12-23 07:29 | disposition home or self-care (01) ==
LOC: ED 17:58 → PCU 18:38
PROVIDERS: Admitting Provider Student in an Organized Health Care Education/Training Program; Emergency Provider Emergency Medicine; Visit Provider Internal Medicine
DX: R29.810 Facial weakness (principal); G45.9 Transient cerebral ischemic attack, unspecified; R79.82 Elevated C-reactive protein (CRP); R20.0 Anesthesia of skin; R29.702 NIHSS score 2; G50.8 Other disorders of trigeminal nerve
CPT/HCPCS: 36415; 70450; 70496; 70498; 70551; 71045; 72156; 80048; 80061; 82962; 83036; 84484; 85025; 85610; 85652; 85730; 86038; 86140; 86225; 86235; 93005; 93306; 94762; 99218; 99284; A9575; Q9957; Q9967; A4216; G0378

== ENCOUNTER 2021-12-25 13:02 | Emergency (ER) | payer OTHER, SELFPAY ==
[2021-12-25 13:03] VITALS: BP 145/101; PULSE 75; RESP 16; TEMP 36.2; O2SAT 98; BMI 31.3
[2021-12-25 13:28] VITALS: BMI 31.3
--- NOTE | 2021-12-25 13:41 | CT_ITS ---
STUDY: CT BRAIN WITHOUT CONTRAST REASON FOR EXAM: Female, 31 years old. slurred speech RADIATION DOSAGE (If Supplied By Facility): CTDIvol = ( 44.99 ) mGy, DLP = ( 798.92 ) mGycm TECHNIQUE: Transaxial CT imaging of the brain was performed without administration of intravenous contrast material. Individualized dose optimization techniques were used for this CT. COMPARISON: No relevant priors. FINDINGS: There is no intra-/extra-axial fluid collection, mass effect, or midline shift. The hinkle/white matter junction is preserved. The basal cisterns are patent. Visualized paranasal sinuses and mastoid air cells are clear. The calvarium is intact. CT/Brain/Head without Contrast IMPRESSION: No acute intracranial finding. MRI may be obtained if clinical suspicion for acute stroke is high. Electronically Signed: Yomi Hahn MD at 14:27 EDT ,
[2021-12-25] MEDS: 0.9% Normal Saline 1,000 ML 999 ML IV (15:06)
[2021-12-25] MEDS: Ketorolac 15 MG/ML Vial IV (15:07)
[2021-12-25] MEDS: DiphenhydrAMINE 50 MG/ML Syringe 25 MG IV (15:09)
[2021-12-25] MEDS: Metoclopramide 10 MG/2 ML Vial IV (15:11)
--- NOTE | 2021-12-25 15:39 | EDS_ITS ---
HPI <RAY Moses - Last Filed: 12/25/21 18:53> History of Present Illness Chief Complaint: Neuro S/Sx Narrative Narrative: 31-year-old female with no symptomatic history presents the emergency department with speech pattern changes. Patient states she now has a lisp and is not able to see her arms. Patient was recently seen here and admitted 2 days ago. Patient was admitted on December 21 for facial droop, numbness and tingling to the right side of her face. Patient was admitted to the hospital, had a full stroke work-up done including MRI/MRA CT, echocardiogram. All of these were negative exams. Patient was discharged 2 days later. Patient states that last evening she developed a lisp, as well as difficulty seeing her Rs. patient states that this speech difficulty waxes and wanes. She is here for evaluation. Patient also complains of a headache to the left side. PFSH <RAY Moses - Last Filed: 12/25/21 18:53> PFSH Medical History Anxiety Genital herpes Panic attack depression Pyogenic granuloma Home Medications sertraline 50 mg PO DAILY 12/25/21 [History Last Taken Unknown] Allergy/AdvReac Type Severity Reaction Status Date / Time azithromycin Allergy Rash Verified 12/25/21 13:05 [From Zithromax Z-Yaw] Crisp And Derivatives Allergy Anaphylaxis Verified 12/25/21 13:05 acetaminophen [From Vicodin] AdvReac Upset Verified 12/25/21 13:05 Stomach hydrocodone [From Vicodin] AdvReac Upset Verified 12/25/21 13:05 Stomach Family History Other Cancer Diabetes Heart disease Hypertension Surgical History History of Hx of appendectomy [place] teeth extracted Social History (Updated 12/21/21 @ 18:29 by Rocio Block) Smoking Status: Never smoker ROS <RAY Moses - Last Filed: 12/25/21 18:53> ROS ED ROS Narrative Constitutional: Negative for fever, chills, weight loss, weakness Eyes: Negative for vision loss, vision change, double vision ENT: Negative for any sore throat, ear pain, congestion Cardiovascular: Negative for any chest pain, tightness, palpitations Respiratory: Negative for any cough, sputum production, hemoptysis, dyspnea, dyspnea on exertion, orthopnea Gastrointestinal: Negative for any abdominal pain, nausea, vomiting, diarrhea, constipation, blood in stool, blood in vomit : Negative for any urinary frequency, dysuria, retention, blood in urine Muscle skeletal: Negative for any muscle joint pain, stiffness, myalgias, arthralgias, neck pain, back pain Neurological: Negative for any syncope, numbness or tingling, dizziness. Positive for headache, speech pattern changes Skin: Negative for any rashes, lumps, itching, abrasions, lacerations Psychiatric: Negative for any depression, anxiety, stress, suicidal ideation, homicidal ideation Hematologic: Negative for any easy bruising, excessive bruising, easy bleeding Allergies: Negative for any eczema, hives, rash EXAM <RAY Moses - Last Filed: 12/25/21 18:53> Physical Exam Narrative Exam Narrative: Vital signs reviewed. HEET: Head normocephalic atraumatic, TMs clear bilaterally. Posterior pharynx is clear, moist mucous membranes. Nares clear bilaterally. Neck: Supple with no lymphadenopathy or tenderness. No signs of meningismus, negative jolt sign. Cardiac: Regular rate and rhythm no murmurs gallops or rubs, equal peripheral pulses bilaterally. Respiratory: Lungs clear to auscultation bilaterally. No chest tenderness. Abdomen: Soft, nontender, nondistended. No abdominal bruit or pulsatile masses. No hepatosplenomegaly Extremities: No peripheral edema, no signs of gross trauma or deformity. Active full range of motion of all extremities. Neuro: Cranial nerves II through XII intact, no focal neurological deficits. Patient's NIH score of 0. Patient does have a lisp, as well as having difficulty saying the R sound with different words. There is no other neurological focal deficits. Skin: Clean dry and intact with no rash, purpura, petechiae, vesicles or pustules. Backs/flank: No CVA tenderness, no midline spinal tenderness, no deformity. Psych: Normal mood and affect. No SI, HI or acute psychosis. Const Vital Signs: 12/25/21 13:03 12/25/21 16:14 12/25/21 18:24 Temperature 97.1 F L Temperature Source Temporal Pulse Rate 75 67 74 Respiratory Rate 16 14 16 Blood Pressure 145/101 H 98/61 116/74 Blood Pressure Mean 115 73 88 Pulse Ox 98 99 Oxygen Delivery Method Room Air Room Air Positive well nourished and well developed General Appearance ED: well developed <Chuckie Bonilla MD - Last Filed: 12/25/21 20:19> Physical Exam Const Vital Signs: 12/25/21 13:03 12/25/21 16:14 12/25/21 18:24 Temperature 97.1 F L Temperature Source Temporal Pulse Rate 75 67 74 Respiratory Rate 16 14 16 Blood Pressure 145/101 H 98/61 116/74 Blood Pressure Mean 115 73 88 Pulse Ox 98 99 Oxygen Delivery Method Room Air Room Air <Dr. Beata Núñez DO - Last Filed: 12/27/21 11:45> Physical Exam Const Vital Signs: 12/25/21 13:03 12/25/21 16:14 12/25/21 18:24 Temperature 97.1 F L Temperature Source Temporal Pulse Rate 75 67 74 Respiratory Rate 16 14 16 Blood Pressure 145/101 H 98/61 116/74 Blood Pressure Mean 115 73 88 Pulse Ox 98 99 Oxygen Delivery Method Room Air Room Air MDM <RAY Moses - Last Filed: 12/25/21 18:53> MDM MDM Narrative Medical decision making narrative: Patient appears well, patient appears nontoxic, vital signs are stable. Patient's NIH score is 0. Patient does have some speech pattern difficulties however this is not slurring. Patient did receive a migraine cocktail secondary to headache. CT scan was unremarkable for any acute process. We did reach out to neurology, they requested a MRV of the brain as well as a postcontrast brain MRI. Patient's MRIs of the brain were both unremarkable for any acute process. At this time, not believe the patient is having any CVA/TIA. I feel confident the patient being discharged home to follow-up with neurology outpatient. Patient in the last 4 days [address] multiple CT scans, MRIs, MRAs of the brain, she will continue her medication regimen, and follow-up outpatient. Patient is agreeable with the plan. She was given the migraine cocktail here, this did decrease the patient's headache. Patient will follow with neurology outpatient instructed return for any worsening symptoms. Patient stable for discharge Radiography Diagnostic Testing: Clinical Impression(s) from Imaging Studies Brain CT 12/25/21 13:41 IMPRESSION: No acute intracranial finding. MRI may be obtained if clinical suspicion for acute stroke is high. Electronically Signed: Yomi Hahn MD at 14:27 EDT , Brain MRI 12/25/21 18:17 IMPRESSION: Normal unenhanced MRV of the brain. Electronically Signed: Ronald Allan MD at 19:30 EDT , Brain MRI 12/25/21 18:33 IMPRESSION: Normal enhanced MRI of the brain. Electronically Signed: Ronald Allan MD at 19:29 EDT , <Chuckie Bonilla MD - Last Filed: 12/25/21 20:19> [facility] Narrative Medical decision making narrative: Dr. Bonilla: Patient was endorsed to me by Dr. Núñez and by Matt Swift PA-C to check the MRI/MRV of this patient who was having problems with tongue numbness and lisp. Her MRI of the brain and MRV are normal. At this point in time, I feel she can be discharged safely home as planned with follow-up. She had extensive work-up already when she was hospitalized earlier in the week. Disposition is discharged home in stable condition. Radiography Diagnostic Testing: Clinical Impression(s) from Imaging Studies Brain CT 12/25/21 13:41 IMPRESSION: No acute intracranial finding. MRI may be obtained if clinical suspicion for acute stroke is high. Electronically Signed: Yomi Hahn MD at 14:27 EDT , Brain MRI 12/25/21 18:17 IMPRESSION: Normal unenhanced MRV of the brain. Electronically Signed: Ronald Allan MD at 19:30 EDT , Brain MRI 12/25/21 18:33 IMPRESSION: Normal enhanced MRI of the brain. Electronically Signed: Ronald Allan MD at 19:29 EDT , <Dr. Beata Núñez, DO - Last Filed: 12/27/21 11:45> [facility] MDM Narrative Medical decision making narrative: Dr. Núñez: I have personally performed a face to face assessment of the patient and have reviewed the [place] Note. I performed a substantive portion of the visit including all aspects of the following. My bonner findings include: History is patient is a 31-year-old female that was just discharged from the hospital earlier this week for evaluation of strokelike symptoms. At that time she had an MRI, CTA of the head and neck and MRI with contrast of the neck for right-sided facial droop and paresthesias of the right arm. Her work-up was negative she was discharged home. Patient notes since yesterday she has been having speech changes and feels like she has a lisp, some heaviness to her right tongue and a hard time pronouncing R sound. No other acute complaints at this time. Patient continues to complain of a mild headache as well. Denies any history of migraines. Denies any head injuries. Exam is patient seen in bed well-appearing. She has waxing and waning speech changes however her NIH is 0. She is not slurring her speech. She has an intermittent slight right facial droop. No focal weakness. Reminder of physical exam is benign. Neck is supple with normal range of motion. No rigidity. No findings consistent or concerning for meningitis. Medical Decision Making Case is discussed with teleneurology consult. Neurologist recommended MRV and postcontrast MRI of the brain to rule out venous dural thrombosis and to better to see if there are any MS symptoms. Differential also includes conversion/somatic disorder as well as atypical migraine. After negative CT of the brain patient is given a migraine cocktail which is not an prove her neurologic symptoms but does improve her headache. Given her extensive work-up in the hospital earlier this week I feel that patient does not require repeat admission and can follow-up outpatient with neurology if MRI/MRV are negative.. Patient and spouse are agreeable with this plan of care. Patient signed out to oncoming provider pending MRI results and f or final disposition. Other additions or changes: [None] Radiography Diagnostic Testing: Clinical Impression(s) from Imaging Studies Brain CT 12/25/21 13:41 IMPRESSION: No acute intracranial finding. MRI may be obtained if clinical suspicion for acute stroke is high. Electronically Signed: Yomi Hahn MD at 14:27 EDT Reading Location ID and State: [facility] / [place] Tel , Service support , Brain MRI 12/25/21 18:17 IMPRESSION: Normal unenhanced MRV of the brain. Electronically Signed: Ronald Allan MD at 19:30 EDT , Brain MRI 12/25/21 18:33 IMPRESSION: Normal enhanced MRI of the brain. Electronically Signed: Ronald Allan MD at 19:29 EDT , Discharge Plan Triage Chief Complaint: Neuro S/Sx ED Midlevel Provider: Matt Swift ED Provider: Beata Núñez Dx/Rx/DC Orders Instructions: Dysarthria: Improving Speech, Headache Migraine Meds Lifestyle Prescriptions: No Action sertraline 50 mg tablet 50 mg PO DAILY RF: 0 Primary Care Provider: Parker Brown Referrals: Parker Brown MD [Primary Care Provider] - Activity Restrictions/Additional Instructions: You have had multiple images of your brain that were negative. Please follow-up outpatient with neurology. Print Language: Spanish Disposition Disposition: Home, Self Care Discharge Date/Time: 12/25/21 20:26
[2021-12-25 16:14] VITALS: BP 98/61; PULSE 67; RESP 14
--- NOTE | 2021-12-25 17:07 | ED.RN ---
CALLED MRI, ATTENTIVE TEST TIME [id number]. PT AWARE
--- NOTE | 2021-12-25 18:17 | MRI_ITS ---
STUDY: EXAMINATION - MRV BRAIN WITHOUT CONTRAST REASON FOR EXAM: Female, 31 years old. headache TECHNIQUE: 3D [id number] (TOF) imaging was performed in a dario MRI scanner. COMPARISON: None. FINDINGS: Normal flow within the superior sagittal sinus. Normal flow within the superficial cortical veins. Normal flow within the paired internal cerebral veins, vein of Lupillo and straight sinus. Normal flow within the bilateral transverse and sigmoid sinuses. Normal flow within the bilateral jugular bulbs. MRI/MRV Head Without Contrast IMPRESSION: Normal unenhanced MRV of the brain. Electronically Signed: Ronald Allan MD at 19:30 EDT ,
[2021-12-25 18:24] VITALS: BP 116/74; PULSE 74; RESP 16; O2SAT 99
--- NOTE | 2021-12-25 18:33 | MRI_ITS ---
STUDY: MRI BRAIN WITH CONTRAST REASON FOR EXAM: Female, 31 years old. speech change TECHNIQUE: Standardized multiplanar fat and water weighted pulse sequences were obtained. IV 18mL DOTAREM was administered for the contrast portion of the examination. COMPARISON: None. FINDINGS: Normal size of the ventricles and extra-axial spaces for the patient''s age. Normal white matter tracts of the supratentorial brain. Normal bilateral basal ganglia. Normal thalami. There is no extra-axial fluid accumulation. Normal flow voids within the major intracranial circulation suggesting patency by spin echo criteria. Normal venous enhancement. There is no enhancing intra-axial or extra-axial abnormality. Normal sella turcica, pituitary gland, infundibular stalk, optic chiasm and hypothalamus. Normal tectal plate and pineal gland. Normal midbrain, simone and medulla. Normal cerebellum. Normal basal cisterns. Normal bilateral temporal bones. Normal bilateral internal auditory canals. No demonstrated orbital abnormality, within the constraints of a routine brain study. Normal visualized paranasal sinuses. Normal calvarium and skull base. Normal visualized soft tissue structures. Normal visualized upper cervical spine. MRI/Brain WITH Contrast IMPRESSION: Normal enhanced MRI of the brain. Electronically Signed: Ronald Allan MD at 19:29 EDT ,
[2021-12-25 20:25] VITALS: BP 108/71; PULSE 68; RESP 17; O2SAT 99
== END 2021-12-25 20:26 | disposition home or self-care (01) ==
PROVIDERS: Emergency Provider Emergency Medicine; PCP Family Medicine; Visit Provider Emergency Medicine
DX: R47.1 Dysarthria and anarthria (principal); R51.9 Headache, unspecified; F41.9 Anxiety disorder, unspecified; Z79.899 Other long term (current) drug therapy
CPT/HCPCS: 70450; 70544; 70552; 96361; 96374; 96375; 99284; A9575; J7030; A4216

== ENCOUNTER 2023-11-28 10:11 | Emergency (ER) | payer OTHER, SELFPAY ==
[2023-11-28 10:11] VITALS: BP 133/92; PULSE 98; RESP 18; TEMP 36.4; O2SAT 99; BMI 29.7
--- NOTE | 2023-11-28 10:38 | ED.VIS.LOWEX ---
HPI History of Present Illness Chief Complaint: Lower Extremity Injury Narrative Narrative: 33-year-old female presenting with right knee pain. She states that she has had this on and off but over the last 24 hours it has been more painful. She states she does a lot of home activities such as bending, stooping, kneeling and noticed that it was really painful when she stood up yesterday. She does state that her son sits on her legs and specifically on her knees but does not remember any traumatic injury. She denies any falls. Today she states it is burning and pain and she describes it medially to the knee. She has not tried any Tylenol ibuprofen but states she did ice and elevate it. [facility] Medical History Anxiety Elevated C-reactive protein (CRP) Genital herpes Panic attack depression Pyogenic granuloma Home Medications bart (Zingiber officinalis) 250 mg capsule (bart extract) 250 mg PO DAILY 11/28/23 [History Last Taken Unknown] Allergy/AdvReac Type Severity Reaction Status Date / Time azithromycin Allergy Rash Verified 11/28/23 10:11 [From Zithromax Z-Yaw] Baca And Derivatives Allergy Anaphylaxis Verified 11/28/23 10:11 acetaminophen [From Vicodin] AdvReac Upset Verified 11/28/23 10:11 Stomach hydrocodone [From Vicodin] AdvReac Upset Verified 11/28/23 10:11 Stomach Family History Other Cancer Diabetes Heart disease Hypertension Surgical History History of Hx of appendectomy [place] teeth extracted Social History Smoking Status: Never smoker ROS ROS ED Constitutional Constitutional ED: Denies chills, fever(s) or sweats Eyes Eyes: Denies blurry vision or change in vision ENT ENT ED: Denies ear pain or sore throat Cardiovascular Cardiovascular: Denies chest pain, palpitations or racing heartbeat Respiratory/Chest Respiratory/Chest: Denies cough, dyspnea or sputum Gastrointestinal Gastrointestinal: Denies abdominal pain, constipation, diarrhea, nausea or vomiting Genitourinary Genitourinary ED: Denies dysuria, hematuria or urinary frequency Musculoskeletal Musculoskeletal: Reports other Details: Right knee pain ; Denies arthralgias, myalgias or neck pain Integumentary Denies abscess, Abrasions or rash Neurologic Neurologic: Denies headache(s), paresthesias or weakness Psychiatric Psychiatric: Denies anxiety, depression, suicidal ideation or suicidal thoughts Endocrine Endocrinology: Denies polydipsia or polyuria EXAM Physical Exam Const Vital Signs: 11/28/23 10:11 Temperature 97.6 F L Temperature Source Temporal Pulse Rate 98 Respiratory Rate 18 Blood Pressure 133/92 H Blood Pressure Mean 105 Pulse Ox 99 Oxygen Delivery Method Room Air Positive well nourished General Appearance ED: NAD HEENT Reports moist mucous membranes normocephalic Resp normal respiratory effort Cardio regular rate and regular rhythm Extremity Extremity Narrative: Tenderness to palpation over the medial joint line of the right knee. No bruising, swelling, deformity. No patellar tenderness. Right knee extensor mechanism is intact. No ligamentous laxity. There is pain noted with valgus strain. Neuro oriented x3 Sensorium / Orientation: alert Motor Exam: strength 5/5 throughout Psych mental status grossly normal MDM MDM MDM Narrative Medical decision making narrative: Patient presenting with right knee pain. On examination there is no ligamentous laxity. No patellar tenderness. No sign of joint infection. She does have some tenderness on the medial joint line. It is possible this could be her meniscus. We discussed this at length. I offered her analgesia but she declined stating she did not eat anything today and she would not typically takes up to one of the stomach. Will obtain a 4 view x-ray of the right knee. We discussed getting a prescription for home. 4 views of the right knee on my interpretation show no acute process. Radiology interprets this and agrees. Patient given discharge instructions. Return precautions discussed. Impression: 1. Right knee strain Radiography Diagnostic Testing: Clinical Impression(s) from Imaging Studies Knee X-Ray 11/28/23 10:59 IMPRESSION: Intact right knee. Electronically Signed: Riley Palacios MD at 11:15 EDT , Discharge Plan Triage Chief Complaint: Lower Extremity Injury ED Provider: Norberto,Law Dx/Rx/DC Orders Instructions: ED Meniscal Injury Knee Poss Prescriptions: No Action bart extract 250 mg capsule 250 mg PO DAILY Primary Care Provider: Reg Mesa Referrals: Parker Brown MD [Non-Staff] - Disposition Disposition: Home, Self Care
--- NOTE | 2023-11-28 10:59 | RAD_ITS ---
EXAM: XR RIGHT KNEE COMPLETE, 4 OR MORE VIEWS CLINICAL INDICATION: Injury TECHNIQUE: Four or more views of the right knee. COMPARISON: No relevant prior studies available. FINDINGS: BONES/JOINTS: No acute fracture, subluxation or joint effusion. SOFT TISSUES: Normal. No soft tissue swelling or gas. No radiopaque foreign body. RAD/Knee 4 or More Views IMPRESSION: Intact right knee. Electronically Signed: Riley Palacios MD at 11:15 EDT ,
[2023-11-28 11:25] VITALS: BP 127/64; PULSE 72; RESP 15; TEMP 36.4; O2SAT 99
== END 2023-11-28 11:27 | disposition home or self-care (01) ==
LOC: ED 11:14
PROVIDERS: Emergency Provider Student in an Organized Health Care Education/Training Program; PCP Internal Medicine; Visit Provider Student in an Organized Health Care Education/Training Program
DX: S83.91XA Sprain of unspecified site of right knee, initial encounter (principal); X58.XXXA Exposure to other specified factors, initial encounter
CPT/HCPCS: 73564; 99282